=== PATIENT | female | born 1965 | race Caucasian/White ===

== ENCOUNTER → 2017-08-11 | Outpatient (CLI) | payer BC ==
[~2017-08-11] MED LIST: ALLERGY SHOTS SUBQ; MOTRIN; MULTI-VITAMIN1 TAB PO; SEASONIQUE 0.11 EACH PO; TYLOX 5/500 CAP1 CAP PO; WAL-ZYR10 MG PO; [UNRECOGNIZED DRUG - REMARK]
== END | disposition home or self-care (01) ==
LOC: CECH 13:00
DX: I34.0 Nonrheumatic mitral (valve) insufficiency (principal); I36.1 Nonrheumatic tricuspid (valve) insufficiency
CPT/HCPCS: 93306